=== PATIENT | male | born 1955 | race Caucasian/White ===

== ENCOUNTER → 2021-06-11 10:35 | Outpatient (CLI) | payer MEDICARE, OTHER, SELFPAY ==
[2021-06-11 12:08] LABS: Influenza A - CEPHEID Flu A NEGATIVE (NEGATIVE); Influenza B - CEPHEID Flu B NEGATIVE (NEGATIVE)
[2021-06-11 12:10] LABS: COVID19 -Nasal RAPID Negative (Negative)
== END ==
PROVIDERS: Referring Provider Physician Assistant; Visit Provider Physician Assistant
DX: Z20.822 Contact with and (suspected) exposure to COVID-19 (principal); R50.9 Fever, unspecified
CPT/HCPCS: 87502; 87635

== ENCOUNTER 2025-07-06 14:23 | Emergency (ER) | payer MEDICARE, OTHER, SELFPAY ==
[2025-07-06 14:29] VITALS: BP 128/83; PULSE 76; RESP 16; TEMP 36.2; O2SAT 95; BMI 36.1
--- NOTE | 2025-07-06 14:35 | DI.RAD.S_ITS ---
PROCEDURE: XR HAND RT MIN 3V INDICATIONS: ?dislocated/fx finger TECHNIQUE: 3 views of the hand(s) acquired. COMPARISON: None. FINDINGS: Bones: There is overlap of the proximal and mid phalanx of the 4th digit seen on AP and oblique view and posterior dislocation of the middle phalanx on lateral view.. No definitively identified fracture. Soft tissues: No suspicious soft tissue calcifications. IMPRESSION: 4th PIP posterior dislocation without visualized fracture. Dictated by: Kala Cervantes M.D. on 07/06/2025 at 15:25 Approved by: Kala Cervantes M.D. on 07/06/2025 at 15:26
--- NOTE | 2025-07-06 15:28 | ED_ITS ---
HPI - Fall General Chief Complaint: Fall Stated Complaint: fell,possible broken right ring finger , hit head Time Seen by Provider: 07/06/25 14:35 Source: patient Mode of arrival: Ambulatory History of Present Illness HPI Narrative: 70-year-old male who is not on blood thinners presents to the ED for a right ring finger injury sustained from a mechanical fall. Patient sustained a mechanical fall earlier today, striking his head on a chair, landing on his outstretched right hand. Patient is right ring finger appears to be miss aligned, dislocated, patient endorses pain. No numbness, tingling, weakness. No loss of consciousness. Patient endorses some right brow tenderness but no other symptoms. Related Data Allergies Allergy/AdvReac Type Severity Reaction Status Date / Time No Known Drug Allergies Allergy Verified 07/06/25 14:34 Review of Systems Constitutional Constitutional: Denies chills, Denies fatigue, Denies fever(s), Denies frequent falls, Denies lethargy and Denies weakness Eyes Eyes: Denies change in vision, Denies eye discharge, Denies irritation and Denies loss of vision ENT Ears, Nose, Mouth, and Throat: Denies change in voice, Denies dizziness, Denies neck pain, Denies sore throat and Denies throat swelling Cardiovascular Cardiovascular: Denies chest pain, Denies irregular heart rhythm, Denies lightheadedness, Denies palpitations, Denies dyspnea, Denies dyspnea on exertion and Denies orthopnea Respiratory Respiratory: Denies cough, Denies dyspnea, Denies dyspnea on exertion and Denies wheezing Gastrointestinal Gastrointestinal: Denies abdominal pain, Denies change in bowel habits, Denies diarrhea, Denies nausea and Denies vomiting Musculoskeletal Musculoskeletal: Denies neck pain and Denies numbness Comments: Right ring finger pain Integumentary/Breasts Skin/Breast: Denies pruritus, Denies erythema, Denies rash and Denies wounds Neurologic Neurologic: Denies behavioral changes, Denies confusion, Denies dizziness, Denies frequent falls, Denies loss of vision, Denies numbness and Denies weakness Psychiatric Psychiatric: Denies anxiety, Denies behavioral changes, Denies confusion, Denies depression, Denies homicidal ideation and Denies suicidal ideation Endocrine Endocrine: Denies fatigue, Denies flushing and Denies palpitations Hematologic/Lymphatic Hematologic/Lymphatic: Denies easy bruising Allergic/Immunologic Allergic/Immunologic: Denies urticaria, Denies throat swelling and Denies wheezing Patient History Social History Smoking Status: Never smoker Smoking Status: Never smoker Exam Narrative Exam Narrative: Const General:?cooperative, healthy appearing and comfortable HENNE Head:?normal to inspection Ears:?hearing grossly normal bilaterally Nose:?external nose normal Face and sinus:?normal facial exam and sinuses nontender Mouth:?oral mucosae normal Throat:?posterior oropharynx normal Eyes General:?appearance normal, both eyes and all related structures Neck Neck:?normal visual inspection and no lymphadenopathy noted Resp Effort & Inspection:?normal respiratory effort Auscultation:?clear to auscultation bilaterally Cardio Rate:?regular rate Rhythm:?regular rhythm Musculoskeletal Right ring finger appears to be dislocated and misaligned at the 4th PIP joint. Patient is neurovascularly intact. Neuro General:?patient alert, patient awake and patient oriented x3 Initial Vital Signs Initial Vital Signs: Vital Signs Temperature 97.2 F L 07/06/25 14:29 Pulse Rate 76 07/06/25 14:29 Respiratory Rate 16 07/06/25 14:29 Blood Pressure 128/83 07/06/25 14:29 Pulse Oximetry 95 07/06/25 14:29 Oxygen Delivery Method Room Air 07/06/25 14:29 Course Orders Ordered: ED Orders 07/06/25 14:35 XR hand RT min 3V Stat 07/06/25 15:31 CT cervical spine wo con Stat CT head/brain wo con Stat 07/06/25 16:15 XR hand RT min 3V Stat Discontinued Medications Lidocaine HCl (Lidocaine 2% Inj Mdv 20ml) 10 ml INJ INTRA-OP ONE Stop: 07/06/25 14:47 Vital Signs Vital signs: Vital Signs - 8 hr 07/06/25 14:29 07/06/25 16:41 Temperature 97.2 F L Pulse Rate 76 72 Respiratory Rate 16 15 Blood Pressure 128/83 109/81 Pulse Oximetry 95 96 Oxygen Delivery Method Room Air Room Air MDM - Fall MDM Narrative Medical decision making narrative: 70-year-old male who is not on blood thinners presents to the ED for a right ring finger injury sustained from a mechanical fall. Will obtain CT head, CT C- spine, hand x-ray to rule out intracranial injuries versus fracture/dislocation. CT head and CT C-spine without acute findings. Hand x-ray shows a 4th PIP posterior dislocation without visualized fracture. Fracture was reduced, patient tolerated well. Post reduction x-ray with good anatomical alignment. Patient is able to flex and extend the PIP without pain. Patient neurovascularly intact pre and post reduction. Patient's finger was splinted and siobhan taped to maintain alignment. ED return precautions discussed with patient. Patient verbalized understanding. Medical records reviewed: Yes Discharge Plan Departure Patient Disposition: Home Clinical Impression: Dislocation of finger PIP joint Qualifiers: Encounter type: initial encounter Qualified Code(s): S63.289A - Dislocation of proximal interphalangeal joint of unspecified finger, initial encounter Instructions: DI for Finger Dislocation, How to Prevent Falls Activity Restrictions/Additional Instructions: You were evaluated in the emergency department today for a finger and head injury from a fall. The ring finger of the right hand was dislocated from the fall, has been reduced and put back in place. The finger has been splinted and siobhan taped for support and to keep the finger in place. It is common for fingers to pop back out after such a dislocation, hence the splint and siobhan ta ping. Please keep this on for the next few days as your finger heals. The CT scans of your head and neck were normal. Please follow-up with your PCP as soon as possible for further evaluation. Return to the ED if you have worsening symptoms, numbness, tingling, weakness. Referrals: Mega Chapman MD [Primary Care Provider, Internal Medicine] Stand Alone Forms: Patient Portal/API
--- NOTE | 2025-07-06 15:31 | DI.CT.S_ITS ---
PROCEDURE: CT HEAD/BRAIN WO CON INDICATIONS: head injury TECHNIQUE: Noncontrast 4.5 mm thick angled axial sections acquired from the foramen magnum to the vertex, with coronal and sagittal reformats. For radiation dose reduction, the following was used: automated exposure control, adjustment of mA and/or kV according to patient size. COMPARISON: [facility], CT, CT CERVICAL SPINE WO CON, 07/06/2025, 15:31. FINDINGS: Image quality: Diagnostic. CSF spaces: Basal cisterns are patent. No extra-axial fluid collections. The ventricles are symmetric in size and shape. Brain: No intracranial bleeds or mass effect. There is cerebral volume loss, with resultant ventricular and sulcal prominence. There are periventricular and deep white matter chronic small vessel ischemic changes. There is intracranial internal carotid artery atherosclerosis. Skull and face: Calvarium and visualized facial bones appear intact, without suspicious lesions. Sinuses: Visualized sinuses and mastoids are clear. IMPRESSION: No acute intracranial pathology. Dictated by: Kala Cervantes M.D. on 07/06/2025 at 15:54 Approved by: Kala Cervantes M.D. on 07/06/2025 at 15:55
--- NOTE | 2025-07-06 15:31 | DI.CT.S_ITS ---
PROCEDURE: CT CERVICAL SPINE WO CON INDICATIONS: fall, head injury TECHNIQUE: Noncontrast 3 mm thick sections acquired from the skull base to the T4 level. Sagittal and coronal reformats were then constructed. For radiation dose reduction, the following was used: automated exposure control, adjustment of mA and/or kV according to patient size. COMPARISON: None. FINDINGS: Image quality: Excellent. Bones: No fractures or dislocations. Visualized superior ribs are intact. Soft tissues: Prevertebral soft tissues are normal in thickness. No paravertebral hematomas. No apical pneumothoraces. IMPRESSION: No displaced fracture or traumatic subluxation. Dictated by: Kala Cervantes M.D. on 07/06/2025 at 15:55 Approved by: Kala Cervantes M.D. on 07/06/2025 at 15:56
--- NOTE | 2025-07-06 16:15 | DI.RAD.S_ITS ---
PROCEDURE: XR HAND RT MIN 3V INDICATIONS: s/p reduction TECHNIQUE: 3 views of the hand(s) acquired. COMPARISON: [facility], CR, XR HAND RT MIN 3V, 07/06/2025, 14:38. FINDINGS: Bones: Interval reduction 4th PIP joint dislocation. There is good anatomic alignment. No visualized fracture. Soft tissues: No suspicious soft tissue calcifications. IMPRESSION: 4th PIP joint reduction with good anatomic alignment. Dictated by: Kala Cervantes M.D. on 07/06/2025 at 16:38 Approved by: Kala Cervantes M.D. on 07/06/2025 at 16:39
[2025-07-06 16:41] VITALS: BP 109/81; PULSE 72; RESP 15; O2SAT 96
== END 2025-07-06 16:42 | disposition home or self-care (01) ==
PROVIDERS: Emergency Provider Student in an Organized Health Care Education/Training Program; PCP Internal Medicine
DX: S63.284A Dislocation of proximal interphalangeal joint of right ring finger, initial encounter (principal); S09.90XA Unspecified injury of head, initial encounter; W19.XXXA Unspecified fall, initial encounter
CPT/HCPCS: 26742; 70450; 72125; 73130; 99281; 99284